=== PATIENT | female | born 1955 | race Caucasian/White ===

== ENCOUNTER → 2016-11-20 | Outpatient (CLI) | payer BC ==
--- NOTE | 2016-11-20 10:25 | CR ---
EXAMINATION: Two-view chest (PA and Lateral views). HISTORY: Cough. FINDINGS: The trachea is midline. The cardiomediastinal silhouette is within normal limits. No pulmonary infil trates, effusions or pneumothorax. Osseous structures appear unremarkable. IMPRESSION: No acute cardiopulmonary process.
== END ==
LOC: MW.CHOBGYN 09:46
PROVIDERS: ATTEND Nurse Practitioner Women's Health
DX: R05 Cough (principal)
CPT/HCPCS: 36415; 71020; 71020-26; 85025; 87804

== ENCOUNTER 2021-02-09 10:00 | Emergency (ER) | payer OTHER ==
[2021-02-09] MEDS ORDERED: Morphine 4 MG/ML Syringe IVPUSH ONE (10:03)
[2021-02-09] MEDS ORDERED: Sodium Chloride 0.9% 1,000 ML IV ONE (10:03)
[2021-02-09] MEDS ORDERED: Sodium Chloride 0.9% 10 ML Syringe FLUSH PRN (10:03)
[2021-02-09] MEDS ORDERED: Sodium Chloride 0.9% 2.5 ML Syringe FLUSH PRN (10:03)
--- NOTE | 2021-02-09 10:10 | EDM.PDOC ---
ED HPI GENERAL MEDICAL PROBLEM - General Chief Complaint: Trauma Stated Complaint: FELL OFF HORSE Time Seen by Provider: 02/09/21 10:03 Source of Information: Reports: Patient History Limitations: Reports: No Limitations - History of Present Illness INITIAL COMMENTS - FREE TEXT/NARRATIVE: 65-year-old female no relevant past medical history not on anticoagulation presents for traumatic injury. Patient was riding a horse when she fell off. She is uncertain if the horse kicked her as she fell. She did not hit her head or lose consciousness. She has been ambulatory after the accident and only reports pain in her left anterior chest. No shortness of breath associated with it. She does note bleeding from her mouth and states that she lost a tooth. Denies abdominal pain, nausea, vomiting. left clavicle Pain Score (Numeric/FACES): 5 - Related Data Allergies Allergy/AdvReac Type Severity Reaction Status Date / Time amoxicillin [From Augmentin] Allergy Rash Verified 02/09/21 10:15 amoxicillin trihydrate Allergy Rash Verified 02/09/21 10:15 [From Augmentin] clavulanic acid Allergy Rash Verified 02/09/21 10:15 [From Augmentin] potassium clavulanate Allergy Rash Verified 02/09/21 10:15 [From Augmentin] Home Meds: Home Meds . 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 Musculoskeletal History: Reports: Arthritis, Fracture Neurological History: Reports: None Psychiatric History: Reports: None Endocrine/Metabolic History: Reports: None Hematologic History: Reports: None Immunologic History: Reports: None Oncologic (Cancer) History: Reports: None Dermatologic History: Reports: Eczema Other Dermatologic History: in winter, behind knees and inner elbows - Past Surgical History Musculoskeletal Surgical History: Reports: Other (See Below) Social & Family History - Family History Respiratory: Reports: Asthma Musculoskeletal: Reports: Arthritis, Osteoarthritis Dermatologic: Reports: Eczema Oncologic: Reports: Lung, Lymphoma, Other (See Below) Other Oncologic Family History: stomach Review of Systems - Review of Systems Review Of Systems: Comprehensive ROS is negative, except as noted in HPI. ED EXAM, GENERAL - Physical Exam Exam: See Below General Appearance: Alert, WD/WN, No Apparent Distress Eye Exam: Bilateral Eye: EOMI, PERRL Ears: Normal External Exam, Hearing Grossly Normal Nose: Other (bleeding from b/l nares, no septal hematoma) Throat/Mouth: Normal Voice, No Airway Compromise, Other (cracked tooth #8 non- TTP, not loose; missing tooth #9) Head: Atraumatic, Normocephalic Neck: Normal Inspection, Supple, Non-Tender, Full Range of Motion. No: Tender Lateral, Tender Midline Respiratory/Chest: No Respiratory Distress, Lungs Clear, Normal Breath Sounds, No Accessory Muscle Use Cardiovascular: Normal Peripheral Pulses, Regular Rate, Rhythm GI/Abdominal: Soft, Non-Tender, No Distention Back Exam: Normal Inspection, Full Range of Motion. No: CVA Tenderness (L), CVA Tenderness (R), Paraspinal Tenderness, Vertebral Tenderness Extremities: Normal Inspection, Other (no TTP of b/l UE; normal learning support specialist strength and radial pulses; no pelvic instability or TTP; no axial loading TTP; no knee TTP b/l, abrasion of right popliteal fossa) Neurological: Alert, Oriented, CN II-XII Intact, Normal Cognition, No Motor/Sensory Deficits Psychiatric: Normal Affect, Normal Mood Skin Exam: Warm, Dry, Intact, Normal Color Course - Vital Signs Last Recorded V/S: Last Vital Signs Temp 98 F 02/09/21 10:00 Pulse 82 02/09/21 10:20 Resp 18 02/09/21 10:20 BP 141/92 H 02/09/21 10:20 Pulse Ox 100 02/09/21 10:20 - Orders/Labs/Meds Orders: Active Orders 24 hr Category Date Time Status Vaccines to be Administered [RC] PER UNIT ROUTINE Care 02/09/21 10:21 Active Sodium Chloride 0.9% [Saline Flush] Med 02/09/21 10:03 Active 10 ml FLUSH ASDIRECTED PRN Sodium Chloride 0.9% [Saline Flush] Med 02/09/21 10:03 Active 2.5 ml FLUSH ASDIRECTED PRN DME for Discharge [COMM] Stat Ot 02/09/21 10:17 Ordered Saline Lock Insert [OM.PC] Stat Ot 02/09/21 10:04 Ordered Medication Orders Sodium Chloride (Sodium Chloride 0.9% 10 Ml Syringe) 10 ml FLUSH ASDIRECTED PRN PRN Reason: Keep Vein Open Last Admin: 02/09/21 10:13 Dose: 10 ml Documented by: SUE Sodium Chloride (Sodium Chloride 0.9% 2.5 Ml Syringe) 2.5 ml FLUSH ASDIRECTED PRN PRN Reason: Keep Vein Open Last Admin: 02/09/21 10:13 Dose: 2.5 ml Documented by: SUE Labs: Laboratory Tests 02/09/21 02/09/21 Range/Units 10:05 10:05 WBC 7.46 (4.0-11.0) K/uL RBC 4.72 (4.30-5.90) M/uL Hgb 14.2 (12.0-16.0) g/dL Hct 42.9 (36.0-46.0) % MCV 90.9 (80.0-98.0) fL MCH 30.1 (27.0-32.0) pg MCHC 33.1 (31.0-37.0) g/dL RDW Std Deviation 45.6 (28.0-62.0) fl RDW Coeff of Alva 14 (11.0-15.0) % Plt Count 313 (150-400) K/uL MPV 10.80 (7.40-12.00) fL Neut % (Auto) 65.5 (48.0-80.0) % Lymph % (Auto) 24.3 (16.0-40.0) % [place] % (Auto) 8.2 (0.0-15.0) % Eos % (Auto) 1.2 (0.0-7.0) % Baso % (Auto) 0.8 (0.0-1.5) % Neut # (Auto) 4.9 (1.4-5.7) K/uL Lymph # (Auto) 1.8 (0.6-2.4) K/uL [place] # (Auto) 0.6 (0.0-0.8) K/uL Eos # (Auto) 0.1 (0.0-0.7) K/uL Baso # (Auto) 0.1 (0.0-0.1) K/uL Nucleated RBC % 0.0 /100WBC Nucleated RBCs # 0 K/uL Sodium 140 (136-145) mmol/L Potassium 4.0 (3.5-5.1) mmol/L Chloride 104 (98-107) mmol/L Carbon Dioxide 24.9 (21.0-32.0) mmol/L BUN 13 (7.0-18.0) mg/dL Creatinine 0.9 (0.6-1.0) mg/dL Est Cr Clr Drug Dosing 49.95 mL/min Estimated GFR (MDRD) > 60.0 ml/min Glucose 142 H (74-106) mg/dL Calcium 9.2 (8.5-10.1) mg/dL Total Bilirubin 0.7 (0.2-1.0) mg/dL AST 24 (15-37) IU/L ALT 19 (14-63) IU/L Alkaline Phosphatase 101 (46-116) U/L Total Protein 7.6 (6.4-8.2) g/dL Albumin 4.1 (3.4-5.0) g/dL Globulin 3.5 (2.6-4.0) g/dL Albumin/Globulin Ratio 1.2 (0.9-1.6) Meds: Medications Generic Name Dose Route Start Last Admin Trade Name Freq PRN Reason Stop Dose Admin Sodium Chloride 10 ml 02/09/21 10:03 02/09/21 10:13 Sodium Chloride 0.9% 10 Ml Syringe FLUSH 10 ml ASDIRECTED PRN Administration Keep Vein Open Sodium Chloride 2.5 ml 02/09/21 10:03 02/09/21 10:13 Sodium Chloride 0.9% 2.5 Ml Syringe FLUSH 2.5 ml ASDIRECTED PRN Administration Keep Vein Open Discontinued Medications Generic Name Dose Route Start Last Admin Trade Name Freq PRN Reason Stop Dose Admin Clindamycin HCl 450 mg 02/09/21 10:24 02/09/21 10:46 Clindamycin Hcl 150 Mg Cap PO 02/09/21 10:25 450 mg ONETIME ONE Administration Diphtheria/Tetanus/Acell Pertussis 0.5 ml 02/09/21 10:21 02/09/21 10:46 Diphtheria,Pertussis(Acell),Tetanus Vaccine 0.5 Ml Syringe IM 02/09/21 10:22 0.5 ml .ONCE ONE Administration Sodium Chloride 1,000 mls @ 999 mls/hr 02/09/21 10:03 02/09/21 10:13 Normal Saline IV 02/09/21 11:03 999 mls/hr .Bolus ONE Administration Morphine Sulfate 4 mg 02/09/21 10:03 02/09/21 10:12 Morphine 4 Mg/Ml Syringe IVPUSH 02/09/21 10:04 4 mg ONETIME ONE Administration - Re-Assessments/Exams Free Text/Narrative Re-Assessment/Exam: 02/09/21 10:08 Will get basic trauma labs; will give morphine for analgesia. Will defer head CT as no LOC and no signs of head trauma. Will defer CT imaging C-spine and L- spine as patient was clinically cleared without TTP or deficits. Patient does have avulsed teeth. She reports pain in L anterior chest and I am concerned for rib vs clavicle fracture. 02/09/21 10:19 XR imaging remarkable for clavicle fracture; sling ordered. Departure - Departure Time of Disposition: 11:11 Disposition: Home, Self-Care 01 Condition: Good Clinical Impression: Dental injury Qualifiers: Encounter type: initial encounter Qualified Code(s): S09.93XA - Unspecified injury of face, initial encounter Clavicle fracture Qualifiers: Encounter type: initial encounter Clavicle location: shaft Fracture type: closed Fracture alignment: displaced Laterality: left Qualified Code(s): S42.022A - Displaced fracture of shaft of left clavicle, initial encounter for closed fracture - Discharge Information Prescriptions: Clindamycin HCl 450 mg PO Q8H 7 Days #63 capsule Ibuprofen [Ibu] 400 mg PO Q6H PRN #20 tablet PRN Reason: Pain oxyCODONE HCl/Acetaminophen [Percocet 10-325 mg Tablet] 1 each PO Q4H PRN #18 tablet PRN Reason: Pain Instructions: Tooth Injuries Forms: ED Department Discharge Additional Instructions: Your emergency department work-up is remarkable for an avulsed tooth, fractured tooth, and a clavicle fracture with minimal displacement. Regarding the clavicle fracture these are typically just treated with sling immobilization of the arm and allowing the clavicle 6 to 8 weeks to fully heal. You should follow-up with an orthopedic surgeon regarding this injury and information is provided below. We have also placed you in a follow-up list. Regarding the fractured and avulsed tooth you will need to follow-up with a dentist as soon as possible. These are prone to getting infected so I have given you a dose of antibiotics in the emergency department and sent antibiotics to her pharmacy. I also sent pain medicine to your pharmacy. The following information is given to patients seen in the emergency department who are being discharged to home. This information is to outline your options for follow-up care. We provide all patients seen in our emergency department with a follow-up referral. The need for follow-up, as well as the timing and circumstances, are variable depending upon the specifics of your emergency department visit. If you don't have a primary care physician on staff, we will provide you with a referral. We always advise you to contact your personal physician following an emergency department visit to inform them of the circumstance of the visit and for follow-up with them and/or the need for any referrals to a consulting specialist. The emergency department will also refer you to a specialist when appropriate. This referral assures that you have the opportunity for follow-up care with a specialist. All of these measure are taken in an effort to provide you with optimal care, which includes your follow-up. Under all circumstances we always encourage you to contact your private physician who remains a resource for coordinating your care. When calling for follow-up care, please make the office aware that this follow-up is from your recent emergency room visit. If for any reason you are refused follow-up, please contact the [facility] Emergency Department at and asked to speak to the emergency department charge nurse. Please follow up with your primary care physician. If you do not have a primary care physician, see below: [facility] [address] [place] [id number] [facility] [address] [place] [address] [facility] - [facility] [address], [place] [address] Sepsis Event Note (ED) - Focused Exam Vital Signs: Vital Signs Temp Pulse Resp BP Pulse Ox 02/09/21 10:20 82 18 141/92 H 100 02/09/21 10:05 75 24 H 129/99 H 100 02/09/21 10:00 98 F 96 17 148/85 H 97 - My Orders Last 24 Hours: My Active Orders 02/09/21 10:03 Sodium Chloride 0.9% [Saline Flush] 10 ml FLUSH ASDIRECTED PRN Sodium Chloride 0.9% [Saline Flush] 2.5 ml FLUSH ASDIRECTED PRN 02/09/21 10:04 Saline Lock Insert [OM.PC] Stat 02/09/21 10:17 DME for Discharge [COMM] Stat 02/09/21 10:21 Vaccines to be Administered [RC] PER UNIT ROUTINE - Assessment/Plan Last 24 Hours: My Active Orders 02/09/21 10:03 Sodium Chloride 0.9% [Saline Flush] 10 ml FLUSH ASDIRECTED PRN Sodium Chloride 0.9% [Saline Flush] 2.5 ml FLUSH ASDIRECTED PRN 02/09/21 10:04 Saline Lock Insert [OM.PC] Stat 02/09/21 10:17 DME for Discharge [COMM] Stat 02/09/21 10:21 Vaccines to be Administered [RC] PER UNIT ROUTINE
[2021-02-09] MEDS ORDERED: Diphtheria,Pertussis(Acell),Tetanus Vaccine 0.5 ML Syringe IM ONE (10:21)
[2021-02-09] MEDS ORDERED: Clindamycin HCl 150 MG Cap PO ONE (10:24)
--- NOTE | 2021-02-09 10:32 | CR ---
INDICATION: Trauma. Bucked from a horse. TECHNIQUE: One view chest. COMPARISON: 20 Nov 2016. IMPRESSION: Mid left clavicle fracture with slight apex cephalad angulation. No rib fracture is appreciated. No pneumothorax or plural effusion. Lungs are clear. Subtle chronic benign appearing but indeterminate medullary calcification right humeral proximal metaphysis. Some degenerative spurring in the thoracic spine. Dictated by Albaro Manning MD @ 02/09/2021 10:29:[address] Albaro Manning @ Feb 09 2021 10:29AM
--- NOTE | 2021-02-09 10:32 | CR ---
INDICATION: Trauma. Bucked from a horse. TECHNIQUE: Two views left clavicle. IMPRESSION: Slight apex cephalad angulation mid clavicle fracture with maintained coracoclavicular and acromioclavicular distances. Dictated by Albaro Manning MD @ 02/09/2021 10:30:[address] Albaro Manning @ Feb 09 2021 10:30AM
[2021-02-09 10:50] LABS: BLOOD UREA NITROGEN,BUN 13 mg/dL (7.0-18.0); CARBON DIOXIDE,CO2 24.9 mmol/L (21.0-32.0); CHLORIDE,CL 104 mmol/L (98-107); GLUCOSE RANDOM 142 mg/dL (74-106); SODIUM,NA 140 mmol/L (136-145)
[2021-02-09 18:04] VITALS: BP 148/98; PULSE 76
== END 2021-02-09 11:35 | disposition home or self-care (01) ==
LOC: MW.ED 10:00
DX: S42.022A Displaced fracture of shaft of left clavicle, initial encounter for closed fracture (principal); S09.93XA Unspecified injury of face, initial encounter; J45.909 Unspecified asthma, uncomplicated; Z23 Encounter for immunization; Z88.0 Allergy status to penicillin; Z88.1 Allergy status to other antibiotic agents; V80.010A Animal-rider injured by fall from or being thrown from horse in noncollision accident, initial encounter
CPT/HCPCS: 36415; 71045; 73000; 80053; 85025; 90471; 90715; 96374; 99283; A9270; J2270; J7030

== ENCOUNTER 2021-03-28 10:16 | Emergency (ER) | payer OTHER ==
--- NOTE | 2021-03-28 10:21 | EDM.PDOC ---
ED HPI GENERAL MEDICAL PROBLEM - General Chief Complaint: Trauma Time Seen by Provider: 03/28/21 10:18 Source of Information: Reports: Patient History Limitations: Reports: No Limitations - History of Present Illness INITIAL COMMENTS - FREE TEXT/NARRATIVE: 65-year-old female presents for fell off horse injury. Patient notes she was riding her horse this morning and it got spooked causing her to be thrown off of the right side and leaned on the back of her head. She notes pain in her right shoulder and pain and bleeding from the back of her head. She denies loss of consciousness. She has been ambulatory after the accident. Denies chest pain, shortness of breath, abdominal pain, nausea, vomiting. No blood thinning medications. right shoulder Pain Score (Numeric/FACES): 5 - Related Data Allergies Allergy/AdvReac Type Severity Reaction Status Date / Time amoxicillin [From Augmentin] Allergy Rash Verified 03/28/21 10:51 amoxicillin trihydrate Allergy Rash Verified 03/28/21 10:51 [From Augmentin] clavulanic acid Allergy Rash Verified 03/28/21 10:51 [From Augmentin] potassium clavulanate Allergy Rash Verified 03/28/21 10:51 [From Augmentin] Home Meds: Home Meds . 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 Musculoskeletal History: Reports: Arthritis, Fracture Neurological History: Reports: None Psychiatric History: Reports: None Endocrine/Metabolic History: Reports: None Hematologic History: Reports: None Immunologic History: Reports: None Oncologic (Cancer) History: Reports: None Dermatologic History: Reports: Eczema Other Dermatologic History: in winter, behind knees and inner elbows - Past Surgical History Head Surgeries/Procedures: Reports: None HEENT Surgical History: Reports: None Cardiovascular Surgical History: Reports: None Respiratory Surgical History: Reports: None GI Surgical History: Reports: None Female Surgical History: Reports: None Endocrine Surgical History: Reports: None Neurological Surgical History: Reports: None Musculoskeletal Surgical History: Reports: Other (See Below) Other Musculoskeletal Surgeries/Procedures:: "reconstruction" of left knee and repair of microfracture left knee (drilling). left femur repair Oncologic Surgical History: Reports: None Dermatological Surgical History: Reports: None Social & Family History - Family History Respiratory: Reports: Asthma Musculoskeletal: Reports: Arthritis, Osteoarthritis Dermatologic: Reports: Eczema Oncologic: Reports: Lung, Lymphoma, Other (See Below) Other Oncologic Family History: stomach Review of Systems - Review of Systems Review Of Systems: Comprehensive ROS is negative, except as noted in HPI. ED EXAM, GENERAL - Physical Exam Exam: See Below Exam Limited By: No Limitations General Appearance: Alert, WD/WN, No Apparent Distress Eye Exam: Bilateral Eye: EOMI, PERRL Ears: Hearing Grossly Normal Throat/Mouth: Normal Voice, No Airway Compromise Head: Normocephalic, Other (linear laceration approx 3-cm right occipital scalp) Neck: Normal Inspection, Non-Tender Respiratory/Chest: No Respiratory Distress, Lungs Clear, Normal Breath Sounds, No Accessory Muscle Use Cardiovascular: Normal Peripheral Pulses, Regular Rate, Rhythm GI/Abdominal: Soft, Non-Tender Back Exam: Normal Inspection Extremities: Normal Inspection, Other (TTP of right anterior AC joint) Neurological: Alert, Normal Cognition, Normal Gait Psychiatric: Normal Affect, Normal Mood Skin Exam: Warm, Dry, Intact, Normal Color ED TRAUMA PROCEDURES - Laceration/Wound Repair Right Posterior Head Lac/Wound Length In cm: 3 Appearance: Superficial Distal NVT: Neuro & Vascular Intact Anesthetic Type: Local Local Anesthesia - Lidocaine (Xylocaine): 1% with EPI Local Anesthetic Volume: 5cc Skin Prep: Chlorhexidine (Hibiciens) Saline Irrigation (cc's): 50 Closed With: Metcalfe # of Sutures: 3 Tetanus Status Addressed: Yes Complications: No Course - Vital Signs Last Recorded V/S: Last Vital Signs Temp 98.5 F 03/28/21 10:16 Pulse 72 03/28/21 10:16 Resp 16 03/28/21 10:16 BP 126/88 03/28/21 10:16 Pulse Ox 98 03/28/21 10:16 - Orders/Labs/Meds Labs: Laboratory Tests 03/28/21 03/28/21 Range/Units 10:23 10:23 WBC 12.08 H (4.0-11.0) K/uL RBC 4.42 (4.30-5.90) M/uL Hgb 13.5 (12.0-16.0) g/dL Hct 40.3 (36.0-46.0) % MCV 91.2 (80.0-98.0) fL MCH 30.5 (27.0-32.0) pg MCHC 33.5 (31.0-37.0) g/dL RDW Std Deviation 44.7 (28.0-62.0) fl RDW Coeff of Alva 13 (11.0-15.0) % Plt Count 290 (150-400) K/uL MPV 10.70 (7.40-12.00) fL Neut % (Auto) 72.3 (48.0-80.0) % Lymph % (Auto) 20.4 (16.0-40.0) % [place] % (Auto) 5.7 (0.0-15.0) % Eos % (Auto) 1.0 (0.0-7.0) % Baso % (Auto) 0.6 (0.0-1.5) % Neut # (Auto) 8.7 H (1.4-5.7) K/uL Lymph # (Auto) 2.5 H (0.6-2.4) K/uL [place] # (Auto) 0.7 (0.0-0.8) K/uL Eos # (Auto) 0.1 (0.0-0.7) K/uL Baso # (Auto) 0.1 (0.0-0.1) K/uL Nucleated RBC % 0.0 /100WBC Nucleated RBCs # 0 K/uL Sodium 139 (136-145) mmol/L Potassium 3.9 (3.5-5.1) mmol/L Chloride 105 (98-107) mmol/L Carbon Dioxide 27.4 (21.0-32.0) mmol/L BUN 17 (7.0-18.0) mg/dL Creatinine 0.9 (0.6-1.0) mg/dL Est Cr Clr Drug Dosing 49.95 mL/min Estimated GFR (MDRD) > 60.0 ml/min Glucose 146 H (74-106) mg/dL Calcium 8.6 (8.5-10.1) mg/dL Total Bilirubin 0.4 (0.2-1.0) mg/dL AST 29 (15-37) IU/L ALT 26 (14-63) IU/L Alkaline Phosphatase 97 (46-116) U/L Total Protein 7.2 (6.4-8.2) g/dL Albumin 3.8 (3.4-5.0) g/dL Globulin 3.4 (2.6-4.0) g/dL Albumin/Globulin Ratio 1.1 (0.9-1.6) Meds: Medications Discontinued Medications Generic Name Dose Route Start Last Admin Trade Name Freq PRN Reason Stop Dose Admin Cyclobenzaprine HCl 10 mg 03/28/21 11:29 03/28/21 11:37 Cyclobenzaprine 10 Mg Tab PO 03/28/21 11:30 10 mg ONETIME ONE Administration Ketorolac Tromethamine 15 mg 03/28/21 11:29 03/28/21 11:36 Ketorolac 15 Mg/Ml Sdv IM 03/28/21 11:30 15 mg ONETIME ONE Administration Lidocaine/Epinephrine 10 ml 03/28/21 12:28 03/28/21 12:37 Lidocaine 1% With Epinephrine 1:100,000 10 Ml Mdv INJECT 03/28/21 12:29 10 ml ONETIME ONE Administration Lidocaine/Epinephrine Confirm 03/28/21 12:29 03/28/21 12:38 Lidocaine 1% With Epinephrine 1:100,000 20 Ml Mdv Administered 03/28/21 12:30 Not Given Dose 20 ml .ROUTE .STK-MED ONE Oxycodone/Acetaminophen 1 tab 03/28/21 11:18 03/28/21 11:41 Acetaminophen/Oxycodone 325-5 Mg Tab PO 03/28/21 11:19 Not Given ONETIME ONE - Re-Assessments/Exams Free Text/Narrative Re-Assessment/Exam: 03/28/21 10:[address]; C-spine cleared clinically. Will get R shoulder XR imaging. Will get basic labs. 03/28/21 11:36 Shoulder x-ray reveals clavicle fracture and multiple mildly displaced right rib fractures without evidence of pneumothorax. Radiology recommends CT chest for further characterization. 03/28/21 13:02 CT imaging shows a clavicle fracture, upper rib fractures. No evidence of pneumothorax. Will place patient in a sling and discharged with orthopedic follow-up. She has been placed on the orthopedic follow-up list. Departure - Departure Time of Disposition: 13:02 Disposition: Home, Self-Care 01 Condition: Good Clinical Impression: Rib fracture Qualifiers: Encounter type: initial encounter Rib fracture type: multiple ribs Fracture type: closed Laterality: right Qualified Code(s): S22.41XA - Multiple fractures of ribs, right side, initial encounter for closed fracture Right clavicle fracture Qualifiers: Encounter type: initial encounter Clavicle location: unspecified part of clavicle Fracture type: closed Fracture alignment: displaced Qualified Code(s): S42.001A - Fracture of unspecified part of right clavicle, initial encounter for closed fracture - Discharge Information Instructions: Rib Fracture, [id number], Clavicle Fracture, [id number] Referrals: Martina Aguilar BOW STRING MAKER [Primary Care Provider] - Forms: ED Department Discharge Additional Instructions: Your CT imaging shows rib fractures and a clavicle fracture. Your CT report has been included with your discharge paperwork. You should continue to wear the sling until you can follow-up with an orthopedist for reassessment. Information is provided below and you have also been placed on our referral sheet. I have sent pain medication as well as a muscle relaxant to your pharmacy. You should return to the emergency department or your primary care physician or an urgent care center for removal of ana maria in 9 to 12 days. [facility] [address], [address] [place] [address] The following information is given to patients seen in the emergency department who are being discharged to home. This information is to outline your options for follow-up care. We provide all patients seen in our emergency department with a follow-up referral. The need for follow-up, as well as the timing and circumstances, are variable depending upon the specifics of your emergency department visit. If you don't have a primary care physician on staff, we will provide you with a referral. We always advise you to contact your personal physician following an emergency department visit to inform them of the circumstance of the visit and for follow-up with them and/or the need for any referrals to a consulting specialist. The emergency department will also refer you to a specialist when appropriate. This referral assures that you have the opportunity for follow-up care with a specialist. All of these measure are taken in an effort to provide you with optimal care, which includes your follow-up. Under all circumstances we always encourage you to contact your private physician who remains a resource for coordinating your care. When calling for follow-up care, please make the office aware that this follow-up is from your recent emergency room visit. If for any reason you are refused follow-up, please contact the [facility] Emergency Department at and asked to speak to the emergency department charge nurse. Please follow up with your primary care physician. If you do not have a primary care physician, see below: [facility] [address] [place] [id number] [facility] [address] [place] [id number] [facility] - [facility] [address] [place] [id number] Sepsis Event Note (ED) - Focused Exam Vital Signs: Vital Signs Temp Pulse Resp BP Pulse Ox 03/28/21 10:16 98.5 F 72 16 126/88 98
[2021-03-28 10:54] LABS: BLOOD UREA NITROGEN,BUN 17 mg/dL (7.0-18.0); CARBON DIOXIDE,CO2 27.4 mmol/L (21.0-32.0); CHLORIDE,CL 105 mmol/L (98-107); GLUCOSE RANDOM 146 mg/dL (74-106); POTASSIUM,K 3.9 mmol/L (3.5-5.1); SODIUM,NA 139 mmol/L (136-145)
--- NOTE | 2021-03-28 10:59 | CT ---
Indication: Trauma, fall off horse, posterior head laceration Technique: Volumetric multidetector CT images of the head were obtained without the administration of low osmolar intravenous contrast. Comparison: None available Findings: There is no intra-axial or extra-axial fluid collection. There is no mass effect or midline shift. There is age-related cortical atrophy with mild sulcal widening and ex vacuo dilatation of the lateral ventricles. There are chronic small vessel disease changes in the subcortical and periventricular white matter without lost mendoza-white differentiation. The orbits and their contents are grossly within normal limits. There is demonstration of posterior soft tissue laceration of the subgaleal soft tissues with additional swelling of the anterior vertex subgaleal soft tissues. The underlying bony calvarium is grossly intact. The paranasal sinuses are clear. The mastoid air cells are well aerated. Impression: 1. Age-related changes of the brain without acute intracranial abnormality. 2. Superficial subgaleal soft tissue laceration and soft tissue swelling without evidence of underlying bony calvarial injury. Please note that all CT scans at this facility use dose modulation, iterative reconstruction, and/or weight-based dosing when appropriate to reduce radiation dose to as low as reasonably achievable. Dictated by Roberto Rae MD @ 03/28/2021 10:58:16 AM (Electronically Signed)
[2021-03-28] MEDS ORDERED: Acetaminophen/oxyCODONE 325-5 MG Tab PO ONE (11:18)
[2021-03-28] MEDS ORDERED: Ketorolac 15 MG/ML SDV IM ONE (11:29)
[2021-03-28] MEDS ORDERED: Cyclobenzaprine 10 MG Tab PO ONE (11:29)
--- NOTE | 2021-03-28 11:32 | CR ---
INDICATION: Fall from horse. TECHNIQUE: Right shoulder radiographs, 3 views. COMPARISON: None available. FINDINGS: Diffuse demineralization. Right peripheral clavicle oblique fracture with mild cranial displacement of the central clavicle. Fracture line approaches the acromioclavicular joint without definite intra-articular extension. Soft tissue prominence overlying the AC joint and peripheral right clavicle. Right glenohumeral joint without dislocation or displaced fracture. Mildly displaced fractures of multiple right upper ribs, at minimum involving the 3rd and 4th ribs. No right apical pneumothorax identified on the provided radiographic views. IMPRESSION: 1. Right clavicle mildly displaced fracture adjacent to the AC joint. 2. Multiple mildly displaced right upper rib fractures. No right apical pneumothorax identified on the provided radiographic views. Consider further evaluation with chest CT, as clinically indicated. Dictated by Tanner Ricardo MD @ 03/28/2021 11:30:43 AM Dictated by: Tanner Ricardo MD @ 03/28/2021 11:31:05 (Electronically Signed)
[2021-03-28] MEDS ORDERED: Lidocaine 1% with EPINEPHrine 1:100,000 10 ML MDV INJECT ONE (12:28)
[2021-03-28] MEDS ORDERED: Lidocaine 1% with EPINEPHrine 1:100,000 20 ML MDV ONE (12:29)
--- NOTE | 2021-03-28 12:56 | CT ---
INDICATION: Fall from a horse. Rib fracture. COMPARISON: Plain film 09 February 2021. TECHNIQUE: Noncontrast images of the chest. FINDINGS: No pneumothorax or pleural effusion. Lung parenchyma is unremarkable. Large sliding hiatus hernia. No pathologic mediastinal or hilar adenopathy. Acute appearing minimally displaced lateral 4th rib fracture. Healed appearing slightly offset lateral 3rd rib fracture. No subpleural hematoma. Subacute appearing left midclavicle fracture with surrounding stippled callus but no solid bridging without significant displacement. Acute appearing right distal/lateral clavicle fracture is juxta-articular to the AC joint. Contusion attenuation in the soft tissues around the right superior shoulder. Stippled foci of medullary high attenuation in the right proximal humerus. Nonspecific but benign appearance. Degenerative disc height loss and osteophytes in the spine. No acute fracture. IMPRESSION: 1. Acute periarticular distal/lateral right clavicle fracture. No definitive extension into the AC joint. 2. Acute right lateral 4th rib fracture. Possibly chronic healed versus acute fracture of the 3rd rib above this. 3. Subacute nonunited mid left clavicular fracture. 4. Stippled high attenuation in the mid medullary cavity of the right humerus could be bone infarct change or a loose large enchondroma which is felt less likely. Consider designated plain-films for further characterization. 5. Large hiatus hernia. Please note that all CT scans at this facility use dose modulation, iterative reconstruction, and/or weight-based dosing when appropriate to reduce radiation dose to as low as reasonably achievable. Dictated by Albaro Manning MD @ 03/28/2021 12:54:39 PM (Electronically Signed)
[2021-03-28 16:24] VITALS: BP 131/93; PULSE 92
== END 2021-03-28 13:20 | disposition home or self-care (01) ==
LOC: MW.ED 10:16
DX: S42.022A Displaced fracture of shaft of left clavicle, initial encounter for closed fracture (principal); S22.41XA Multiple fractures of ribs, right side, initial encounter for closed fracture; S01.01XA Laceration without foreign body of scalp, initial encounter; J45.909 Unspecified asthma, uncomplicated; Z88.0 Allergy status to penicillin; Z88.1 Allergy status to other antibiotic agents; V80.010A Animal-rider injured by fall from or being thrown from horse in noncollision accident, initial encounter; Y93.52 Activity, horseback riding
CPT/HCPCS: 12002; 36415; 70450; 71250; 73030; 80053; 85025; 96372; 99284; A9270; J1885